=== PATIENT | male | born 1990 | race Caucasian/White ===

== ENCOUNTER → 2023-07-01 | Outpatient (CLI) | payer BC ==
--- NOTE | 2023-07-01 16:13 | XR ---
EXAMINATION TYPE: XR cervical spine 3 views limited, XR shoulder complete 3 views RT DATE OF EXAM: 07/01/2023 Comparison: None Clinical History: 33-year-old male neck pain radiating down the right shoulder for months, recent num bness. M54.2 Findings: Cervical spine: No predental space widening or prevertebral soft tissue swelling. There is some reversal of the félix l cervical lordosis but with preserved alignment. Disc interspaces are maintained. Normal odontoid vi ew. 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 Probably incidental find ing. Right shoulder: No acute fracture, subluxation or dislocation. Subacromial space is preserved. No tendinous or bursal calcifications. Impression: 1. Cervical spine: Reversal of the normal cervical lordosis which could be positional or due to muscl e spasm. 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 2. Right shoulder: No acute osseous abnormality seen.
== END | disposition home or self-care (01) ==
LOC: RADXRMAIN 15:20
PROVIDERS: ATTEND Physician Assistant
DX: M54.2 Cervicalgia (principal); M25.511 Pain in right shoulder
CPT/HCPCS: 72040